=== PATIENT | female | born 1995 | race Hispanic/Latino ===

== ENCOUNTER 2018-03-09 13:42 | Outpatient (CLI) | payer OTHER | END 2018-03-09 13:43 | disposition home or self-care (01) | LOC: BICULT 13:42 | PROVIDERS: ATTEND Family Medicine | DX: Z34.92 Encounter for supervision of normal pregnancy, unspecified, second trimester (principal); Z3A.19 19 weeks gestation of pregnancy | CPT/HCPCS: 76805 ==

== ENCOUNTER 2018-03-23 10:44 | Outpatient (CLI) | payer OTHER ==
--- NOTE | 2018-03-23 12:07 | ULT ---
RIGHT UPPER QUADRANT ULTRASOUND: Date: 03/23/18 HISTORY: 23-year-old female (20 weeks ) with right upper quadrant pain. FINDINGS: The liver, gallbladder, right kidney, and visualized portions of the pancreas appear normal. The comm on duct measures 3.0 mm in diameter. No free fluid is seen in Morison's pouch. IMPRESSION: Normal exam. POS: [facility]
== END 2018-03-23 10:45 | disposition home or self-care (01) ==
LOC: ULT 10:44
PROVIDERS: ATTEND Family Medicine
DX: R10.11 Right upper quadrant pain (principal)
CPT/HCPCS: 76705

== ENCOUNTER 2018-07-23 07:50 | Emergency (ER) | payer OTHER | END 2018-07-23 09:31 | disposition home or self-care (01) | LOC: ERS 07:50 | DX: O99.513 Diseases of the respiratory system complicating pregnancy, third trimester (principal); J30.2 Other seasonal allergic rhinitis; Z3A.37 37 weeks gestation of pregnancy | CPT/HCPCS: 87081; 87430; 99283 ==

== ENCOUNTER 2018-07-24 08:52 | Day surgery (SDC) | payer OTHER ==
[2018-07-24 09:40] VITALS: BMI 34.3
--- NOTE | 2018-07-24 09:59 | PDOC.OBTPN ---
FMR OB Triage PN:Sub - Interval History Chief Complaint: decreased movement, cough, congestion Indentification: 23 yo Interval History: 23 yo @ 37.5 weeks bt lmp c/w 19 week sono FMR OB Triage PN:Obj - Maternal Vital signs: BP: [] HR: [] RR: [] Tmax: [] Pox: []% on [] Wt: [] FMR OB Triage PN:A/P Discussion: Date/Time: 07/24/18 0957 This H&P was discussed with [] and [] who agree with the above documentation and plan.
--- NOTE | 2018-07-24 10:05 | PDOC.LDHP ---
Labor and Delivery H&P Chief complaint: decreased movement, other (viral URI) HPI: 23 yo @ 37.5 by lmp c/w 19 week sono presents for evlauation of viral URI type symptoms in addition to decreased movement. Pt reports decreased movement starting yesterday, but currently reports good movement. She was seen in [facility] yesterday and discharged with rx of allergic rhinitis vs viral upper respiratory infection. Reports Tmax of 99.5. Has associated headache which decreased in severity with tylenol. Denies associated myalgia and arthralgia. Denies n/v, contractions, LOF, vaginal bleeding. Currently reports positive movement. ROS: General: Reports Tmax of 99.5, denies chills HEENT: Nasal congestion, sore throat CV: Denies CP Respiratory: reports dry cough, denies SOB Abd/OB: Denies LOF, vaginal bleeding, contractions, n/v/d/c, abdominal pain MSK: Denies arthralgias and myalgias PE: General: No acute distress, resting comfortably in bed HEENT: NCAT, erythematous posterior pharynx w/ cobblestone appearence, no tonsillar hypertrophy or exudates *Remainder of PE below* Current gestational age (weeks): 37 (+5) Due date: 08/09/18 Dating criteria: last menstrual period, second trimester ultrasound Grav: 1 Para: 0 Current complications: none Abnormal US findings: No Current medications: pre-corinna vitamins Previous surgical history: none Social history: none - Physical Exam Vital signs reviewed and normal: yes General: NAD Heart: RRR Lungs: CTAB Abdomen: NTTP Extremeties: trace edema FHT: category 1 (Reactive strip), variability present [place] contractions every: None - OB Labs Blood type: O RH: positive Antibody Screen: negative HIV: negative RPR: negative HEPSAg: negative Rubella: immune - Assessment 1) Viral URI: - low grade temperature - cont prn medications per primary OB provider - po hydrate - return if new or worsening symptoms or fever > 100.4 - stable for dc to home - negative strep swab yesterday in ER 2) sIUP: - reactive strip on EFM - reports pos movement - recommend kick counts and f/u with primary OB provider - stable for DC to home - Plan Plan: other <Martin Moreno - Last Filed: 07/24/18 10:08> <Sulaiman Phan - Last Filed: 07/25/18 06:57> Allergies/Adverse Reactions: Allergies Allergy/AdvReac Type Severity Reaction Status Date / Time No Known Allergies Allergy Verified 07/24/18 09:33 Attending Addendum - Attending Addendum Date/Time: 07/25/18 0657 I personally evaluated the patient and discussed the management with Dr. Moreno I agree with the History, Examination, Assessment and Plan documented above with any addition or exceptions noted below. <Sulaiman Phan - Last Filed: 07/25/18 06:57>
== END 2018-07-24 10:30 | disposition home or self-care (01) ==
LOC: L&D/OP 08:52 → ERS 08:52 → EDSTATUS 08:58 → L&D/OP 10:30
PROVIDERS: ATTEND Family Medicine
DX: O36.8130 Decreased fetal movements, third trimester, not applicable or unspecified (principal); O99.513 Diseases of the respiratory system complicating pregnancy, third trimester; J06.9 Acute upper respiratory infection, unspecified; B34.9 Viral infection, unspecified; O99.89 Other specified diseases and conditions complicating pregnancy, childbirth and the puerperium; R51 Headache; Z3A.37 37 weeks gestation of pregnancy; Z79.899 Other long term (current) drug therapy
CPT/HCPCS: 59025; 99282

== ENCOUNTER 2018-08-04 14:28 | Day surgery (SDC) | payer OTHER ==
[2018-08-04 15:02] VITALS: BMI 35.3
--- NOTE | 2018-08-04 15:51 | PDOC.LDHP ---
Labor and Delivery H&P HPI: Patient of Dr Escalante Here for possible contractions, no LOF, no VB HPI: 23 yo G1 at 39 weeks by 08/09 EDC here for possible contractions, No NELSON, no visual changes, no ROM, good FM review of Systems: complete ROS done and as per HPI Current gestational age (weeks): 39 Dating criteria: last menstrual period Grav: 1 Para: 0 Current complications: none Abnormal US findings: No Current medications: pre- vitamins Previous surgical history: none Allergies/Adverse Reactions: Allergies Allergy/AdvReac Type Severity Reaction Status Date / Time No Known Allergies Allergy Verified 07/24/18 09:33 Social history: none - Physical Exam Vital signs reviewed and normal: yes (130/70) General: NAD Heart: RRR Lungs: CTAB Abdomen: gravid (EFW about 6#) FHT: category 1 [place] contractions every: 2 contractions in 10-12 minutes - Assessment Threatened labor at full term. Was closed when Dr Escalante checked her last office eval. RN exam with unable to check cervix due to posterior cervix...I will recheck when she is ready - Plan Plan: observation in L&D, other (GBS negative)
--- NOTE | 2018-08-04 16:09 | PDOC.EVN ---
Event Note - Event Note Event Note: Exam by me at 1603: cervix closed/40-50/-2. No evidence VB or ROM. Cat 1 tracing. I reviewed latent phase with her and duong murphy contractions. BP is ok at this time. I have recommended she follow up in 24-48 hrs before the weekend for reeval or to return to L&D if sxs persist/increase. Pat present in room for eval.
== END 2018-08-04 16:30 | disposition home or self-care (01) ==
LOC: L&D/OP 14:28
PROVIDERS: ATTEND Family Medicine
DX: O47.1 False labor at or after 37 completed weeks of gestation (principal); Z3A.39 39 weeks gestation of pregnancy
CPT/HCPCS: 99282

== ENCOUNTER 2018-08-07 18:04 | Day surgery (SDC) | payer OTHER ==
[2018-08-07 18:28] VITALS: BP 118/78; TEMP 98.8; BMI 35.3
--- NOTE | 2018-08-07 19:58 | PDOC.FPROB ---
FMR OB H&P: HPI - History of Present Illness Chief Complaint: contractions, loss of mucus plug History of Present Illness: 23 yo at 39.5 by LMP/reported 6w ivone presents with contractions. She reports that she believes she lost her mucus plug at about 0400. Since then, she has had intermittent contractions that became stronger at around 1400 today. She noted that at home they were 8/10 and she was in so much pain she was vomiting. Since arriving here, they have decreased to a 5 and she is feeling them approximately every 5 minutes. She is feeling baby move regularly, denies leakage of fluid or vaginal bleeding/discharge. Primary Care Physician: Dr. Paige Escalante FMR OB H&P: Current - Care : 1 Para: 0 Gestational age: 39.5 Due date: 08/09/2018 Dating Criteria: LMP/reported 6w sono Course/Complications: RUQ pain earlier in , negative RUQ sono - OB Labs Blood type: O RH: positive Antibody Screen: unknown HIV: negative RPR: negative HepBsAg: negative Rubella: immune 1 hour gtt: 106 GBS: negative Additional labs: TSH 1.89 - First Trimester Ultrasound First trimester: reported 6w sono - Anatomy Survey Anatomy survey: 19.2w sono WNL FMR OB H&P: History - Past Medical History PMH: None - OB History OB History: G1 - Surgical History Sx History: None - Social History Social History: Denies tobacco, alcohol, drug use - Family History Family History: Denies family history of DM, HTN, complications FMR OB H&P: Medications - Current Home Medications: Medication Instructions Recorded Confirmed Type Vit Calc,Iron,Folic 1 each PO DAILY 07/24/18 08/07/18 History [ Vitamins] Allergies/Adverse Reactions: Allergies Allergy/AdvReac Type Severity Reaction Status Date / Time No Known Allergies Allergy Verified 08/07/18 18:28 FMR OB H&P: ROS - Review of Systems General: denies: fever/chills, weight/appetite/sleep changes Eyes: denies: eye pain, vision changes ENT: denies: nasal congestion, rhinorrhea Cardiovascular: denies: chest pain, palpitation Respiratory: denies: cough, congestion Gastrointestinal: reports: abdominal pain, nausea, vomiting. denies: diarrhea Genitourinary (Female): denies: dysuria, hematuria Musculoskeletal: denies: pain, stiffness Neurologic: reports: loss of counsciousness. denies: syncope, headache Integumentary: denies: itching, rash Endocrine: denies: polydipsia, polyuria Psychological: denies: depression, anxiety FMR OB H&P: Vital Signs - Maternal Vital signs: Vital Signs - First Documented Temp Pulse Resp BP Pulse Ox 98.8 F 72 18 118/78 98 08/07/18 18:25 08/07/18 18:25 08/07/18 18:25 08/07/18 18:25 08/07/18 18:25 - Heart Tones Baseline: 130 Variability: moderate Acceleration: present Deceleration: absent Category: category 1 [place] contractions every: 2-6 minutes FMR OB H&P: Physical Exam - Physical Exam General: NAD, awake, alert and oriented HEENT: normocephalic and atraumatic Neck: supple Chest: non-tender to palpation Heart: RRR, normal S1/S2 Deviation from normal: 1+ edema to BL mid-bates General: CTAB, no respiratory distress Abdomen: soft, gravid, non-tender Musculoskeletal: normal gait and station, pulses present Neurological: no focal deficit Skin: good tugor, other (macular faintly erythematous rash on chest) Lymphatic: no unusual bruising or bleeding Psychiatric: good judgement and insight, normal mood and affect - Pelvic Exam SVE: 1.5/thick/high Estimated Weight: 8 lbs FMR OB H&P: A/P - Problem List (1) Current Visit: No Status: Acute (2) Uterine contractions Current Visit: No Status: Acute Code(s): [id number] - Disposition: 23 yo at 39.5w by LMP/reported 6w sono here with contractions 1. Contractions - Cervix with minimal change since visit yesterday - Discussed option for monitoring vs. laboring at home and she prefers to go home - Discussed kick counts and return precautions - Return for induction tomorrow evening unless contractions persist/worsen prior to that time - Desires pain control, will give 1 time dose IM morphine 2. Elevated BP - 2 pressures in mild range however patient reports these were both taken in the middle of a contraction - 2 additional repeated WNL - No headache, vision changes, RUQ/epigastric pain, stable edema which she has had > 2 months - Discussed precautions and reasons for prompt return to L&D Discussion: Date/Time: 08/07/181957 This patient was seen and discussed with Dr. Phan who agrees with the above assessment and plan. Signature: Cathie Chacon MD, PGY-3
[2018-08-07] MEDS ORDERED: Morphine 10 MG/ML VIAL IM SCH (20:00)
[2018-08-07] MEDS ORDERED: Ondansetron ODT 8 MG TAB SL SCH (20:00)
== END 2018-08-07 20:25 | disposition home or self-care (01) ==
LOC: L&D/OP 18:04
PROVIDERS: ATTEND Family Medicine
DX: O47.1 False labor at or after 37 completed weeks of gestation (principal); Z3A.39 39 weeks gestation of pregnancy; Z79.899 Other long term (current) drug therapy
CPT/HCPCS: 96372; 99283; J2270

== ENCOUNTER 2018-08-08 21:00 | Inpatient (IN) | payer OTHER ==
--- NOTE | 2018-08-07 19:17 | PDOC.FPROB ---
FMR OB H&P: HPI - History of Present Illness Chief Complaint: contractions, loss of mucus plug History of Present Illness: 23 yo at 39.5 by LMP/reported 6w ivone presents with contractions. She reports that she believes she lost her mucus plug at about 0400. Since then, she has had intermittent contractions that became stronger at around 1400 today. She noted that at home they were 8/10 and she was in so much pain she was vomiting. Since arriving here, they have decreased to a 5 and she is feeling them approximately every 5 minutes. She is feeling baby move regularly, denies leakage of fluid or vaginal bleeding/discharge. Primary Care Physician: Dr. Paige Escalante FMR OB H&P: Current - Care : 1 Para: 0 Gestational age: 39.5 Due date: 08/09/2018 Dating Criteria: LMP/6w sono Course/Complications: RUQ pain earlier in with negative RUQ sono - OB Labs Blood type: O RH: positive Antibody Screen: unknown HIV: negative RPR: negative HepBsAg: negative Rubella: immune 1 hour gtt: 106 GBS: negative - First Trimester Ultrasound First trimester: Reported 6w sono (no record available at this time) - Anatomy Survey Anatomy survey: Unremarkable @ 19.2w FMR OB H&P: History - Past Medical History PMH: None - OB History OB History: G1 - Surgical History Sx History: None - Social History Social History: Denies tobacco, alcohol, drug use - Family History Family History: Denies DM, HTN, complications FMR OB H&P: Medications - Current Home Medications: Medication Instructions Recorded Confirmed Type Vit Calc,Iron,Folic 1 each PO DAILY 07/24/18 08/07/18 History [ Vitamins] Allergies/Adverse Reactions: Allergies Allergy/AdvReac Type Severity Reaction Status Date / Time No Known Allergies Allergy Verified 08/07/18 18:28 FMR OB H&P: ROS - Review of Systems General: denies: fever/chills, weight/appetite/sleep changes Eyes: denies: vision changes, double vision ENT: denies: nasal congestion, sore throat Cardiovascular: denies: chest pain, palpitation Respiratory: denies: cough, congestion Gastrointestinal: reports: abdominal pain, nausea, vomiting. denies: diarrhea Genitourinary (Female): denies: dysuria, hematuria Musculoskeletal: denies: pain, stiffness Neurologic: denies: syncope, headache Integumentary: denies: itching, rash Endocrine: denies: polydipsia, polyuria Psychological: denies: depression, anxiety FMR OB H&P: Vital Signs - Maternal Vital signs: BP 118/78 P 96 T 98.8 R 18 - Heart Tones Baseline: 130 Variability: moderate Acceleration: present Deceleration: absent Category: category 1 [place] contractions every: 2-6 minutes FMR OB H&P: Physical Exam - Physical Exam General: NAD, awake, alert and oriented HEENT: normocephalic and atraumatic Neck: supple, trachea midline Heart: RRR, normal S1/S2 General: CTAB, no respiratory distress Abdomen: soft, gravid, non-tender Musculoskeletal: normal gait and station, pulses present Deviation from normal: 1+ edema to mid-bates BL Skin: capillary refill <2 seconds, other (faint macular rash on chest) - Pelvic Exam SVE: 1.5/thick/high per VANDANA Gamino FMR OB H&P: A/P - Problem List (1) Status: Acute (2) Uterine contractions Status: Acute Code(s): [id number] - Disposition: 23 yo at 39.5w by LMP/reported 1T sono here with contractions 1. Contractions - Minimal cervical chance since checked in clinic yesterday - No e/o ROM and reassuring FHT - Discussed option to stay for monitoring or return home and she desires to return home - Discussed return precautions, kick counts - Elective IOL scheduled for tomorrow Discussion: Date/Time: 08/07/181915 This H&P was discussed with [] and [] who agree with the above documentation and plan.
[2018-08-08 22:25] VITALS: BMI 35.5
[2018-08-08] MEDS: Lactated Ringer's 1,000 ML IV SCH (22:40)
[2018-08-08] MEDS ORDERED: Ondansetron HCl/PF 4 MG/2 ML Vial IVP PRN (22:45)
[2018-08-08] MEDS ORDERED: Butorphanol Tartrate 1 MG/ML VIAL SLOW IVP PRN (22:45)
[2018-08-08] MEDS ORDERED: Acetaminophen 500 MG TAB PO PRN (22:45)
[2018-08-08] MEDS ORDERED: Promethazine HCl 25 MG/ML VIAL IM PRN (22:45)
[2018-08-08 22:56] LABS: Hemoglobin 11.4 g/dL (12.0-16.0); Mean Corpuscular HGB CONC 33.3 g/dL (32.0-36.0); Mean Corpuscular Hemoglobin 27.6 pg (27.0-31.0); Mean Platelet Volume 10.9 fL (7.4-10.4); Platelet Count 137 thou/uL (130-400); RBC Distribution Width 15.1 % (11.5-14.5); Red Blood Cell (RBC) Count 4.14 mill/uL (4.20-5.40); White Blood Cell (WBC) Count 9.4 thou/uL (4.8-10.8)
[2018-08-08] MEDS ORDERED: HYDROcodone/Acetaminophen 5/325 mg Tablet PO PRN ×2 (23:00)
[2018-08-08] MEDS ORDERED: Methylergonovine 0.2 MG/ML VIAL IM PRN (23:00)
[2018-08-08] MEDS ORDERED: Ibuprofen 800 MG TAB PO PRN (23:00)
[2018-08-08] MEDS ORDERED: Carboprost 250 MCG/ML AMP IM PRN (23:00)
[2018-08-08] MEDS ORDERED: Misoprostol 200 MCG TAB RC PRN (23:00)
[2018-08-08] MEDS ORDERED: Lidocaine 1% (PF) 30 ML VIAL SC PRN (23:00)
[2018-08-08] MEDS ORDERED: NS / Oxytocin 40 units/1000ml 1,000 ML IV SCH (23:00)
[2018-08-08] MEDS ORDERED: NS w/ Oxytocin 10 units 500 ML IV SCH (23:00)
[2018-08-08 23:33] LABS: HBSAg Index 0.27 S/CO (0-0.99); HIV (1/2) Antibody/Antigen Non-Reactive (NonReactive); HIV 1/2 INDEX 0.15 S/CO (<1.00); Hep B Surf Ag Non-Reactive S/CO (NonReactive)
[2018-08-08 23:34] LABS: Syphilis Antibody Nonreactive (Nonreactive); Syphilis Antibody Index 0.04 S/CO (<1.00 Non-Reactive)
[2018-08-08] MEDS ORDERED: DISCONTINUE ALL PREVIOUS NARCOTICS FS SCH (23:45)
[2018-08-09] MEDS ORDERED: Lactated Ringer's 500 ML IV PRN (00:19)
[2018-08-09] MEDS ORDERED: ePHEDrine/0.9% NaCl/PF SYRINGE 50 mg/10 ml SLOW IVP PRN (00:19)
[2018-08-09] MEDS ORDERED: Acetaminophen 325 MG TAB PO PRN (00:19)
[2018-08-09] MEDS ORDERED: Promethazine HCl 25 MG/ML VIAL IM PRN ×2 (00:19→22:45)
[2018-08-09] MEDS ORDERED: Ondansetron HCl/PF 4 MG/2 ML Vial IVP PRN ×2 (00:19→22:45)
[2018-08-09] MEDS ORDERED: diphenhydrAMINE 50 MG/ML VIAL IVP PRN ×2 (00:19→22:45)
[2018-08-09] MEDS ORDERED: Naloxone HCl 0.4 mg/ml Vial IVP PRN ×4 (00:19→22:45)
[2018-08-09] MEDS ORDERED: Eucerin (Mineral Oil/Petrolatum,White) 30 gm Jar TOP PRN ×2 (00:19→22:45)
[2018-08-09] MEDS: Bupivacaine 0.5% 20 ML, fentaNYL Citrate/PF 400 MCG in Sodium Chloride 0.9% 72 ML EPIDURAL SCH ×5 (00:20→20:08)
[2018-08-09] MEDS: Misoprostol 100 MCG TAB VAG SCH ×3 (00:20→06:52)
[2018-08-09] MEDS: NS w/ Oxytocin 10 units 500 ML IV SCH (00:21)
[2018-08-09] MEDS ORDERED: fentaNYL Citrate/PF 400 MCG, Bupivacaine 0.5% 20 ML in Sodium Chloride 0.9% 72 ML EPIDURAL SCH (00:30)
[2018-08-09] MEDS ORDERED: Communication Order-Pharmacy FS SCH ×2 (00:30→22:45)
[2018-08-09] MEDS: Lactated Ringer's 1,000 ML IV SCH ×2 (03:07→09:52)
[2018-08-09] MEDS ORDERED: Ondansetron HCl/PF 4 MG/2 ML Vial ONE ×2 (11:53→21:51)
[2018-08-09] MEDS ORDERED: Lidocaine 2% MPF 10 ML AMP (For Epidural Use) ONE (11:53)
[2018-08-09] MEDS: Dextrose 5%-Lactated Ringers 1,000 ML IV SCH (14:10)
[2018-08-09] MEDS ORDERED: Acetaminophen 500 MG TAB PO SCH (20:15)
[2018-08-09] MEDS ORDERED: Ampicillin/Sulbactam 3 GM in Sodium Chloride 0.9% 100 ML IVPB SCH (21:00)
[2018-08-09] MEDS ORDERED: Bicitra 30 ML UDCUP ONE (21:33)
[2018-08-09] MEDS ORDERED: CEFAZOLIN/Water 2 GM/20 ML SYRINGE ONE (21:33)
--- NOTE | 2018-08-09 21:36 | PDOC.EVN ---
Event Note - Event Note Event Note: Came to see pt for fever and tachycardia. Persistent tachycardia 180 for over an hour despite fluid bolus, tylenol, unasyn., Temp up to 102. After discussion with patient decision to proceed with primary c section. All risks discussed. Remote from delivery, SVE /-2, with caput.
[2018-08-09] MEDS ORDERED: Lidocaine 2% 10 ML INJ ONE (21:42)
[2018-08-09] MEDS ORDERED: Oxytocin 10 UNITS/ML VIAL ONE (21:51)
[2018-08-09] MEDS ORDERED: Morphine PF 1 MG/ML SYR ONE (21:51)
[2018-08-09] MEDS ORDERED: Fentanyl 100 MCG/2 ML VIAL ONE ×2 (22:12→22:19)
[2018-08-09] MEDS ORDERED: Midazolam HCl 2 mg/2 ml Vial ONE (22:12)
[2018-08-09] MEDS ORDERED: Bupivacaine PF 0.5% 30 ML VIAL ONE (22:21)
[2018-08-09 22:39] LABS: Actual Bicarbonate (HCO3v) 21 mEq/L (22-28); Analyzer IN Cardio OR; Base Excess -4.8 mEq/L (-2.0 to +3.0); pH (Cord, venous) 7.33 (7.32-7.43)
[2018-08-09] MEDS ORDERED: Promethazine HCl 25 MG SUPP PR PRN (22:45)
[2018-08-09] MEDS ORDERED: Naloxone HCl 0.4 mg/ml Vial IV PRN (22:45)
[2018-08-09] MEDS ORDERED: Misoprostol 200 MCG TAB ONE ×4 (22:47→22:48)
[2018-08-10] MEDS ORDERED: Adacel (T-DAP) 0.5 ML VIAL IM ONE (00:36)
[2018-08-10] MEDS ORDERED: NS / Oxytocin 40 units/1000ml 1,000 ML IV SCH (00:36)
[2018-08-10] MEDS: Ketorolac Tromethamine 30 MG/ML VIAL IVP PRN ×3 (01:22→14:31)
--- NOTE | 2018-08-10 02:08 | HP ---
HISTORY OF PRESENT ILLNESS: This is a 23-year-old [place] female, at 40 weeks' gestatio n with EDC of 08/09/2018, has been in labor all day. She has had failure to progress. She has also had a temperature of 102. She was started on Unasyn. However, she has failed to dilate any further. Mother is short and baby appears large. tachycardia noted at this time. Plan to proceed wit h a primary low transverse section. PAST MEDICAL HISTORY: Unremarkable. PAST SURGICAL HISTORY: None. FAMILY HISTORY: Unremarkable. MEDICATIONS: vitamins and iron. ALLERGIES: None. SOCIAL HISTORY: Father of baby present. She does not smoke, does not drink. REVIEW OF SYSTEMS: As above. PHYSICAL EXAMINATION: VITAL SIGNS: Stable, afebrile at this time. GENERAL: In no acute distress at this time. HEART: Regular rate and rhythm. LUNGS: Clear. ABDOMEN: Soft, gravid. LABORATORIES: O positive blood type, RPR nonreactive, rubella immune, HIV negative, hepatitis B nega tive, GBS negative, one-hour GCT 106 ASSESSMENT: 1. Term . 2. Failure to progress. 3. Chorioamnionitis. 4. Spontaneous rupture of membranes at 0430. PLAN: 1. Epidural in place. 2. Anesthesia present. 3. Proceed with primary low transverse section.
--- NOTE | 2018-08-10 02:18 | OP ---
PREOPERATIVE DIAGNOSES: 1. Term . 2. Failure to progress. 3. Chorioamnionitis. POSTOPERATIVE DIAGNOSES: 1. Term . 2. Failure to progress. 3. Chorioamnionitis. 4. Occiput posterior plus large for gestational age baby. PROCEDURE: Primary low-transverse section. SURGEON: Clark Urena MD WEB PUBLISHER: David Tovar. ANESTHESIA: Epidural. ESTIMATED BLOOD LOSS: 800 mL. DESCRIPTION OF PROCEDURE: This 23-year-old [place] female, G1, P0 taken to the operating room . She was placed in supine position. Abdomen was prepped and draped sterilely. Pfannenstiel incisi on was made. Subcutaneous was dissected on fascia. Fascia was opened without incident. Peritoneum was opened by blunt dissection. Bladder blade was placed. Bladder flap was dissected inferiorly. L ow-transverse uterine incision was noted. Meconium fluid was noted. Delivered the baby from OP posi tion using the vacuum. Baby delivered nicely. Delivered placenta, 3-vessel intact. Closed the uter us in 2 layers of 1 Monocryl with a second imbricating layer. Abdomen evacuated of all clots. Fasci a was closed with 0 Vicryl, and skin with vamsi. Estimated blood loss was 800 mL. Mother and baby did very well.
[2018-08-10] MEDS: Ampicillin/Sulbactam 3 GM in Sodium Chloride 0.9% 100 ML IVPB SCH ×4 (03:29→21:50)
[2018-08-10] MEDS ORDERED: Bupivacaine/Epinephrine 0.25% 30 ML VIAL ONE (03:59)
[2018-08-10] MEDS ORDERED: Bupivacaine 0.25% HCL 30 ML VIAL ONE (03:59)
[2018-08-10 06:16] LABS: Mean Corpuscular Hemoglobin 27.4 pg (27.0-31.0); Mean Corpuscular Volume 83.1 fL (78.0-98.0); Mean Platelet Volume 9.5 fL (7.4-10.4); Platelet Count 104 thou/uL (130-400); RBC Distribution Width 15.4 % (11.5-14.5); Red Blood Cell (RBC) Count 3.65 mill/uL (4.20-5.40); White Blood Cell (WBC) Count 10.5 thou/uL (4.8-10.8)
[2018-08-10] MEDS: Lactated Ringer's 1,000 ML IV SCH (06:47)
[2018-08-10] MEDS: NS w/ Oxytocin 10 units 500 ML IV SCH (08:15)
[2018-08-10] MEDS: Dextrose 5%-Lactated Ringers 1,000 ML IV SCH (08:15)
[2018-08-10] MEDS: Misoprostol 100 MCG TAB VAG SCH (08:16)
[2018-08-10] MEDS: Ferrous Sulfate 325 MG TAB PO SCH ×2 (08:56→21:19)
[2018-08-10] MEDS: Prenatal Vitamin 1 TAB PO SCH (08:56)
[2018-08-10] MEDS: HYDROcodone/Acetaminophen 5/325 mg Tablet PO PRN ×3 (11:38→21:18)
[2018-08-10] MEDS: Ibuprofen 800 MG TAB PO PRN (22:10)
--- NOTE | 2018-08-10 23:01 | PDOC.PP ---
Post Progress Note Post Day #: 1 Subjective: Pain controlled, ambulating, baby coming out of NICU to the room some. PO intake tolerated: yes Flatus: yes Ambulation: yes Vital Signs (12 hours) Temp Pulse Resp BP Pulse Ox 08/10/18 20:07 98.3 F 105 H 20 142/65 H 97 08/10/18 17:00 98.1 F 86 18 129/68 08/10/18 11:23 98.0 F 89 20 114/68 Weight Weight 176 lb - Physical Examination General: NAD Cardiovascular: no m/r/g, RRR Respiratory: clear to auscultation bilaterally, non-labored breathing Abdominal: + bowel sounds, lochia, no distention, appropriately TTP Skin: CS incision dry & intact, no rash Psychiatric: A&Ox3, normal affect Result Diagrams: 08/10/18 05:28 Additional Labs: Post Labs Blood Type O POSITIVE 08/08/18 22:46 Hep Bs Antigen Non-Reactive S/CO (NonReactive) 08/08/18 22:46 (1) delivery delivered Code(s): O82 - ENCOUNTER FOR DELIVERY WITHOUT INDICATION Status: Acute - Assessment/Plan Post-op day #1 Doing well Continue to work on pain control Baby still on Abx for intrapartum fever OK to D/C Unasyn after tonight's dose.
[2018-08-11] MEDS: HYDROcodone/Acetaminophen 5/325 mg Tablet PO PRN ×3 (02:33→16:38)
[2018-08-11] MEDS: Ibuprofen 800 MG TAB PO PRN ×2 (05:28→21:41)
[2018-08-11] MEDS: Ferrous Sulfate 325 MG TAB PO SCH ×2 (08:38→21:41)
[2018-08-11] MEDS: Prenatal Vitamin 1 TAB PO SCH (08:38)
[2018-08-12] MEDS: Ibuprofen 800 MG TAB PO PRN (05:58)
[2018-08-12] MEDS: HYDROcodone/Acetaminophen 5/325 mg Tablet PO PRN (05:58)
[2018-08-12 08:03] VITALS: BP 127/90; TEMP 98.1
[2018-08-12] MEDS: Ferrous Sulfate 325 MG TAB PO SCH (09:58)
[2018-08-12] MEDS: Prenatal Vitamin 1 TAB PO SCH (10:00)
--- NOTE | 2018-08-12 12:09 | DIS ---
DATE OF ADMISSION: 08/08/2018 DATE OF DISCHARGE: 08/12/2018 DIAGNOSES: 1. Term . 2. Failure to progress. 3. Large for gestational age baby. DISCHARGE MEDICATIONS: vitamins and iron daily and hydrocodone 5/325 p.o. q.4 p.r.n. BRIEF HISTORY: This is a 23-year-old female, G1, P0, at term who labored and had fail ure to progress. She also developed a fever of 102. She was started on Unasyn; however, because of failure to progress, she underwent a primary low transverse section. HOSPITAL COURSE: Postop, the patient did well. She remained afebrile. She did receive Unasyn preop and postop x24 hours. She has remained afebrile. She is doing well. Incision remains clear. We w ill discharge home today with vitamins, iron and pain medications. Discharge H and H is 10 and 30. Admit H and H is 11.4 and 34.4.
== END 2018-08-12 12:30 | disposition home or self-care (01) | DRG 788 ==
LOC: L&D 21:58 → 3SW 08-10 00:37
PROVIDERS: ADMIT Family Medicine; ATTEND Family Medicine
PROC: 10D00Z1 Extraction of Products of Conception, Low, Open Approach (ICD-10-PCS; principal; 2018-08-10)
DX: O41.1230 Chorioamnionitis, third trimester, not applicable or unspecified (principal); O62.0 Primary inadequate contractions; Z3A.40 40 weeks gestation of pregnancy; Z37.0 Single live birth; O64.0XX0 Obstructed labor due to incomplete rotation of fetal head, not applicable or unspecified
CPT/HCPCS: 36415; 51702; 82805; 85027; 86780; 86850; 86900; 86901; 87340; 87389; 88307; 90471; 90686; G0008; J0295; J1885; J2001; J2250; J2274; J2405; J2590; J3010; J3490; J7050; S0020

== ENCOUNTER 2021-06-27 16:30 | Emergency (ER) | payer BC, OTHER ==
[2021-06-27] MEDS ORDERED: Promethazine HCl 25 MG SUPP ONE (17:51)
[2021-06-27] MEDS ORDERED: Acetaminophen 500 MG TAB ONE (19:05)
== END 2021-06-27 19:38 | disposition home or self-care (01) ==
LOC: ERS 16:30
DX: O21.9 Vomiting of pregnancy, unspecified (principal); O99.891 Other specified diseases and conditions complicating pregnancy; R63.0 Anorexia; Z3A.13 13 weeks gestation of pregnancy; Z79.899 Other long term (current) drug therapy
CPT/HCPCS: 99283